=== PATIENT | female | born 1950 | race Caucasian/White ===

== ENCOUNTER → 2018-01-13 12:59 | Outpatient (CLI) | payer MEDICARE, SELFPAY ==
--- NOTE | 2018-01-13 13:02 | BI_ITS ---
MAMMOGRAPHY - BILATERAL DIAGNOSTIC REASON FOR EXAM: Female, 67 years old. Right retroareolar lump. PERTINENT HISTORY: Non-contributory. TECHNIQUE: Digital bilateral breast zaid (3D mammographic acquisition) in the CC and MLO projections. 2-D mediolateral oblique (MLO) and craniocaudad (CC) views of both breasts were obtained. CAD: Full Field Digital Mammography with Computer Added Detection was performed. COMPARISON: Comparison is made with prior study dated January 15, 2015 and May 04, 2013. FINDINGS: Breast Composition: There are scattered areas of fibroglandular density. There are no dominant masses or suspicious calcifications. No other significant abnormalities are identified. There has been no significant change since the prior study. BI/DIAG MAMM W/CAD, BILAT IMPRESSION: Stable bilateral diagnostic mammogram. With the patient's history of a palpable abnormality in the right retroareolar region, correlation with ultrasound is recommended. ASSESSMENT CATEGORY: BIRADS Category 0: Incomplete. Need additional imaging evaluation. A letter regarding these results will be sent to the patient by the facility within 30 days. Approximately 10% of breast cancers are not detected by mammography. A normal mammogram should not delay biopsy of a clinically suspicious abnormality. Electronically Signed: González Ibrahim MD at 14:32 EST Tel [phone], Service support ,
--- NOTE | 2018-01-13 13:55 | US_ITS ---
STUDY: ULTRASOUND BREAST - RIGHT REASON FOR EXAM: Female, 67 years old. History of a retroareolar lump. TECHNIQUE: Axial and longitudinal images of the RIGHT breast were performed with a high resolution ultrasound transducer. COMPARISON: Comparison is made with prior mammogram done earlier today. FINDINGS: RIGHT Breast: There is a 5 mm x 4 mm x 2 mm cyst in the retroareolar region of the breast. US/Breast Limited Unilateral IMPRESSION: 5 mm x 4 mm x 2 mm cyst in the lateral retroareolar region of the breast. Routine mammographic follow-up is recommended. ASSESSMENT CATEGORY: BIRADS Category 2: Benign. A letter regarding these results will be sent to the patient by the facility within 30 days. Electronically Signed: González Ibrahim MD at 14:29 EST Tel [phone], Service support ,
== END ==
PROVIDERS: Family Provider Preventive Medicine Occupational Medicine; PCP Preventive Medicine Occupational Medicine; Referring Provider Preventive Medicine Occupational Medicine; Visit Provider Preventive Medicine Occupational Medicine
DX: N60.01 Solitary cyst of right breast (principal)
CPT/HCPCS: 76642; 77062; 77066; G0279

== ENCOUNTER 2020-05-25 15:38 | Outpatient (RCR) | payer MEDICARE, SELFPAY | END 2020-08-07 23:59 | LOC: IMMUN 15:38 | PROVIDERS: PCP Preventive Medicine Occupational Medicine; Visit Provider Family Medicine | DX: Z23 Encounter for immunization (principal) | CPT/HCPCS: 0001A; 0002A; 91300 ==

== ENCOUNTER 2021-11-15 23:22 | Emergency (ER) | payer MEDICARE, SELFPAY ==
[2021-11-15 23:23] VITALS: BP 147/79; PULSE 88; RESP 18; TEMP 36.4; O2SAT 98; BMI 22.3
--- NOTE | 2021-11-15 23:38 | EDS_ITS ---
[facility] <Dr. Ariel Martniez MD - Last Filed: 11/15/21 23:43> History of Present Illness Chief Complaint: Lower Extremity Injury Informant: patient and family Narrative Narrative: Most of the history is obtained through the family. Patient has some chronic cognitive difficulties that make her have trouble getting an accurate timeline. She was complaining about left foot pain today. The family noticed that it has some swelling. But there have been no complaints of fevers or chills. They states she easily could have hurt this but they do not know of any specific event. Also, while they are here, they are concerned because the patient urinates very frequently. She evidently states she has been doing this for a long time. She does not have burning or discomfort or odor. She evidently also drinks quite a bit of water. She drinks about a case of water a day. She will also drink coffee and soda. She has had an episode of hyponatremia. Family was told it may have been due to a prior medication but it sounds like per her history it was likely due to delusional and increased free water drinking. Patient does have a history of rheumatoid arthritis and has multiple swollen and painful joints at times. She denies history of known gout. [facility] <Dr. Ariel Martinez MD - Last Filed: 11/15/21 23:43> [facility] Medical History Cognitive change Rheumatoid arthritis Home Medications baclofen 10 mg tablet 10 mg PO BID 11/15/21 [History Last Taken Unknown] bupropion HCl 150 mg 24 hr tablet, extended release 150 mg PO DAILY 11/15/21 [History Last Taken Unknown] clonazepam 0.5 mg tablet 0.5 mg PO DAILY 11/15/21 [History Last Taken Unknown] donepezil 5 mg tablet 5 mg PO QHS 11/15/21 [History Last Taken Unknown] hydrocodone-acetaminophen 5-325mg 5mg-325mg 1 tab PO DAILY 11/15/21 [History Last Taken Unknown] trazodone 50 mg tablet 50 mg PO QHS 11/15/21 [History Last Taken Unknown] Allergy/AdvReac Type Severity Reaction Status Date / Time amoxicillin Allergy PT UNSURE Verified 11/15/21 23:25 OF REACTION Penicillins Allergy PT UNSURE Verified 11/15/21 23:25 OF REACTION Social History Smoking Status: Never smoker ROS <Dr. Ariel Martinez MD - Last Filed: 11/15/21 23:43> ROS ED Constitutional Constitutional ED: Denies chills, fever(s) or subjective Eyes Eyes: Denies change in vision ENT ENT ED: Denies sore throat Cardiovascular Cardiovascular: Denies chest pain or palpitations Respiratory/Chest Respiratory/Chest: Denies cough or dyspnea Gastrointestinal Gastrointestinal: Denies abdominal pain, diarrhea, nausea or vomiting Genitourinary Genitourinary ED: Reports urinary frequency; Denies dysuria Musculoskeletal Musculoskeletal: Reports arthralgias and other Details: See history of present Integumentary Denies rash Neurologic Neurologic: Denies headache(s) Endocrine Endocrinology: Reports polydipsia and polyuria Hematologic/Lymphatic Hematologic/Lymphatic: Denies easy bleeding, easy bruising or lymphadenopathy Allergic/Immunologic Allergic/Immunologic ED: Denies urticaria EXAM <Dr. Ariel Martinez MD - Last Filed: 11/15/21 23:43> Physical Exam Const Vital Signs: 11/15/21 23:23 11/15/21 23:43 Temperature 97.5 F L Temperature Source Temporal Pulse Rate 88 Respiratory Rate 18 16 Blood Pressure 147/79 H Blood Pressure Mean 101 Pulse Ox 98 Oxygen Delivery Method Room Air Room Air Positive well nourished and well developed General Appearance ED: well developed and NAD HEENT Reports moist mucous membranes Eyes General Eye ED: Negative for scleral icterus Neck supple Chest Wall inspection of chest normal Resp normal respiratory effort and clear to auscultation bilaterally Cardio regular rate, regular rhythm and no murmurs GI normal to inspection, nondistended, normoactive bowel sounds and non-tender Back/Spine no CVA tenderness Extremity Extremity Narrative: Patient's had bilateral knee replacements. They are not red swollen or painful. The left foot does have an area of swelling on the dorsum. But it is not red. Pulses are normal. There may be a slight darkening of this area. There is mild tenderness. She has similar areas of swelling on her wrists and hands. Neuro Neuro Narrative: Patient is awake alert appropriate and at baseline per family. Psych Attitude: No agitated Mood & Affect: Negative for anxious Skin no rashes or lesions noted <Dr. Jef Bone DO - Last Filed: 11/16/21 00:32> Physical Exam Const Vital Signs: 11/15/21 23:23 11/15/21 23:43 Temperature 97.5 F L Temperature Source Temporal Pulse Rate 88 Respiratory Rate 18 16 Blood Pressure 147/79 H Blood Pressure Mean 101 Pulse Ox 98 Oxygen Delivery Method Room Air Room Air MDM <Dr. Ariel Martinez MD - Last Filed: 11/15/21 23:43> [facility] Narrative Medical decision making narrative: Patient was seen at the end of my shift. We initiated work-up and will be turned over the oncoming physician. Tests have been ordered but none are back. Patient's primary complaint is the left foot. We will get an x-ray of this but this may be her rheumatoid arthritis. With his history of polyuria and increased free water drinking we will check urinalysis. I will also get basic labs to make sure she is not having hyponatremia or other issues. Lab Data Labs: Laboratory Results - last 24 hr 11/15/21 11/15/21 11/15/21 23:45 23:45 23:56 WBC 14.8 H RBC 4.65 Hgb 9.7 L Hct 29.1 L MCV 62.6 L MCH 20.9 L MCHC 33.3 RDW Std Deviation 33.4 L RDW Coeff of Lorenzo 15.7 H Plt Count 455 H MPV 9.1 Immature Gran % (Auto) 0.700 Neut % (Auto) 84.0 H Lymph % (Auto) 7.9 L Charles % (Auto) 7.0 Eos % (Auto) 0.3 Baso % (Auto) 0.1 Absolute Neuts (auto) 12.4 H Absolute Lymphs (auto) 1.17 Nucleated RBC % 0 Sodium 131 L Potassium 3.5 Chloride 94 L Carbon Dioxide 26.0 Anion Gap 11 BUN 10 Creatinine 0.74 Estim Creat Clear Calc 45.20 Est GFR (MDRD) Af Amer 100 Est GFR (MDRD) Non-Af 83 BUN/Creatinine Ratio 13.6 Glucose 106 Uric Acid 3.0 Calcium 8.5 Urine Color Yellow Urine Clarity Clear Urine pH 7.0 Ur Specific [place] 1.010 Urine Protein 30 H Urine Glucose (UA) Normal Urine Ketones Negative Urine Occult Blood 150 H Urine Nitrite Negative Urine Bilirubin Negative Urine Urobilinogen 1 H Ur Leukocyte Esterase 100 H Urine RBC 0-5 SEEN Urine WBC 0-5 SEEN Ur Squamous Epith Cells 0 SEEN Urine Bacteria 0 SEEN Hyaline Casts 5-10 SEEN Urine Mucus 0 SEEN Radiography Diagnostic Testing: Clinical Impression(s) from Imaging Studies Foot X-Ray 11/15/21 23:50 IMPRESSION: 1. No acute or healing fracture or malalignment. 2. Polyarticular degenerative changes. 3. Focal soft tissue prominence or swelling along the fifth metatarsophalangeal joint. Correlate clinically. Electronically Signed: Jef Valles MD at 0:12 EDT , <Dr. Jef Bone, DO - Last Filed: 11/16/21 00:32> [facility] Lab Data Attestation: I reviewed the patient's lab results. Labs: Laboratory Results - last 24 hr 11/15/21 11/15/21 11/15/21 23:45 23:45 23:56 WBC 14.8 H RBC 4.65 Hgb 9.7 L Hct 29.1 L MCV 62.6 L MCH 20.9 L MCHC 33.3 RDW Std Deviation 33.4 L RDW Coeff of Lorenzo 15.7 H Plt Count 455 H MPV 9.1 Immature Gran % (Auto) 0.700 Neut % (Auto) 84.0 H Lymph % (Auto) 7.9 L Charles % (Auto) 7.0 Eos % (Auto) 0.3 Baso % (Auto) 0.1 Absolute Neuts (auto) 12.4 H Absolute Lymphs (auto) 1.17 Nucleated RBC % 0 Sodium 131 L Potassium 3.5 Chloride 94 L Carbon Dioxide 26.0 Anion Gap 11 BUN 10 Creatinine 0.74 Estim Creat Clear Calc 45.20 Est GFR (MDRD) Af Amer 100 Est GFR (MDRD) Non-Af 83 BUN/Creatinine Ratio 13.6 Glucose 106 Uric Acid 3.0 Calcium 8.5 Urine Color Yellow Urine Clarity Clear Urine pH 7.0 Ur Specific [place] 1.010 Urine Protein 30 H Urine Glucose (UA) Normal Urine Ketones Negative Urine Occult Blood 150 H Urine Nitrite Negative Urine Bilirubin Negative Urine Urobilinogen 1 H Ur Leukocyte Esterase 100 H Urine RBC 0-5 SEEN Urine WBC 0-5 SEEN Ur Squamous Epith Cells 0 SEEN Urine Bacteria 0 SEEN Hyaline Casts 5-10 SEEN Urine Mucus 0 SEEN Radiography Diagnostic Testing: Clinical Impression(s) from Imaging Studies Foot X-Ray 11/15/21 23:50 IMPRESSION: 1. No acute or healing fracture or malalignment. 2. Polyarticular degenerative changes. 3. Focal soft tissue prominence or swelling along the fifth metatarsophalangeal joint. Correlate clinically. Electronically Signed: Jef Valles MD at 0:12 EDT , Foot x-ray as interpreted by the emergency medicine physician reveals soft tissue swelling without acute fracture dislocation or foreign body Treatment and Re-Evaluation Narrative: The patient was signed out to me pending her x-ray and laboratory. Her x-ray revealed no acute fracture dislocation or foreign body. The patient's sodium is only slightly low at 131 which is not clinically significant. Her urine does not show any bacteria. Her white count is elevated but this is a pro i nflammatory marker and I feel most likely elevated from stress response of pain and rheumatoid arthritis. The patient does not have fever or overlying redness or warmth to suggest an infectious process. Therefore at this time as the patient has not required admission because of hyponatremia there is no obvious UTI or urosepsis or acute kidney injury and no obvious changes to suggest bony trauma she is otherwise safe for discharge Discharge Plan Triage Chief Complaint: Lower Extremity Injury ED Provider: Ariel Martinez Dx/Rx/DC Orders Clinical Impression: Rheumatoid arthritis, Contusion of foot, left, Hyponatremia Instructions: ED Foot Contusion, ED Rheumatoid Arthritis Prescriptions: No Action baclofen 10 mg tablet 10 mg PO BID Label Comments: TAKE 1 TABLET BY MOUTH TWICE A DAY NEEDED FOR MUSCLE SPASM hydrocodone-acetaminophen 5-325 mg tablet 1 tab PO DAILY bupropion HCl 150 mg tablet extended release 24 hr 150 mg PO DAILY Label Comments: TAKE 1 TABLET BY MOUTH EVERY DAY clonazepam 0.5 mg tablet 0.5 mg PO DAILY Label Comments: TAKE 1 TABLET BY MOUTH EVERY MORNING donepezil 5 mg tablet 5 mg PO QHS Label Comments: TAKE 1 TABLET BY MOUTH EVERY DAY AT BEDTIME trazodone 50 mg tablet 50 mg PO QHS Primary Care Provider: Vincent Hernandez Referrals: Vincent Hernandez DO [Primary Care Provider] - Activity Restrictions/Additional Instructions: Please return to the ER should you have any further concerns Disposition Disposition: Home, Self Care
[2021-11-15 23:43] VITALS: RESP 16
--- NOTE | 2021-11-15 23:50 | RAD_ITS ---
EXAM: XR LEFT FOOT COMPLETE, 3 OR MORE VIEWS CLINICAL INDICATION: pain TECHNIQUE: Frontal, lateral and oblique views of the left foot. This report was created using [email or web address] report generation technology. COMPARISON: None. FINDINGS: No acute or healing fracture or malalignment. No other unusual lytic or sclerotic lesions of bone. Prominent plantar calcaneal enthesophyte. Degenerative changes of the midfoot and and multiple distal interphalangeal joints. Focal soft tissue prominence or swelling along the fifth metatarsophalangeal joint. RAD/Foot min 3 Views IMPRESSION: 1. No acute or healing fracture or malalignment. 2. Polyarticular degenerative changes. 3. Focal soft tissue prominence or swelling along the fifth metatarsophalangeal joint. Correlate clinically. Electronically Signed: Jef Valles MD at 0:12 EDT ,
[2021-11-15 23:52] LABS: Absolute Lymphocyte Count 1.17 X10^3/uL (0.83-4.51); Absolute Neutrophil Count 12.4 X10^3/uL (2.0-7.7); Basophil# 0.02 X10^3/uL; Basophil% 0.1 % (0-1); Eosinophil# 0.05 X10^3/uL; Eosinophils% 0.3 % (0-5); Hematocrit 29.1 % (37-47); Hemoglobin 9.7 g/dL (12.0-15.0); Lymphocyte # 1.17 X10^3/ul (0.83-4.51); Lymphocyte % 7.9 % (19-41); Mean Corp Hgb Conc 33.3 g/dL (32-36); Mean Corpuscular Hgb 20.9 pg (27.0-32.0); Mean Corpuscular Volume 62.6 fL (81-99); Mean Platelet Vol. 9.1 fl (6.2-12.0); Monocyte# 1.04 X10^3/uL; NRBC Flagged by Analyzer 0 % (0-5); Neutrophil # 12.41 X10^3/uL (2.7-7.7); Platelet Count 455 K/mm3 (150-450); RBC Distribution Width CV 15.7 % (11.6-14.6); RBC Distribution Width SD 33.4 fl (35.1-43.9); Red Blood Count 4.65 M/mm3 (4.2-5.4); White Blood Count 14.8 K/mm3 (4.4-11.0)
[2021-11-16 00:01] LABS: Bacteria 0 SEEN /hpf (None Seen); Mucous, Urine 0 SEEN /hpf (<or=2+); Squamous Epithelial Cells - UA 0 SEEN /hpf (5-10)
[2021-11-16 00:07] LABS: Color, Urine Yellow (Yellow); Glucose, Dipstick Normal (Normal); Ketone-Dipstick Negative (Negative); Leukocyte Esterase-Dipstick 100 /ul (Negative); Nitrite-Dipstick Negative (Negative); Occult Blood-Urine 150 /ul (Negative); Protein-Dipstick 30 mg/dl (Negative); Urine Bilirubin Dipstick Negative (Negative); Urine Clarity Clear (Clear); Urine Urobilinogen 1 mg/dl (Normal)
[2021-11-16 00:12] LABS: Anion Gap 11 (5-15); BUN 10 mg/dL (7-18); BUN/Creat Ratio 13.6 RATIO (10-20); Calcium,Total 8.5 mg/dL (8.5-10.1); Chloride 94 mmol/L (98-107); Creatinine, Serum 0.74 mg/dL (0.55-1.02); EST Glomerular Filtration Rate 83 mL/min (>60); Est Glom Filt Rate - Afr Amer 100 mL/min (>60); Glucose 106 mg/dL (74-106); Potassium 3.5 mmol/L (3.5-5.1); Sodium Level 131 mmol/L (136-145)
[2021-11-16 00:15] LABS: Hyaline Cast 5-10 SEEN /lpf (0-5); Red Blood Cells-Urine 0-5 SEEN /hpf (0-5); White Blood Cells 0-5 SEEN /hpf (0-5)
== END 2021-11-16 00:41 | disposition home or self-care (01) ==
PROVIDERS: Emergency Provider Emergency Medicine; PCP Preventive Medicine Occupational Medicine; Visit Provider Emergency Medicine
DX: M06.072 Rheumatoid arthritis without rheumatoid factor, left ankle and foot (principal); S90.32XA Contusion of left foot, initial encounter; E87.1 Hypo-osmolality and hyponatremia; Z79.899 Other long term (current) drug therapy; X58.XXXA Exposure to other specified factors, initial encounter
CPT/HCPCS: 73630; 80048; 81001; 84550; 85025; 99283; A4216